=== PATIENT | male | born 1940 | race Caucasian/White ===

== ENCOUNTER 2017-10-12 14:29 | Inpatient (IN) | payer OTHER, BC ==
[2017-10-12 14:42] VITALS: BMI 28.2
[2017-10-12] MEDS ORDERED: SODIUM CHLORIDE 500 ML IV STA (14:52)
--- NOTE | 2017-10-12 15:03 | PDOC ---
History of Present Illness - General History Source: Patient - History of Present Illness Timing/Duration: 1 week Severity: mild Associated Symptoms: denies: chest pain, cough, diaphoresis, fever/chills, headaches, nausea/vomiting, shortness of breath, syncope, weakness <Kate RegaladoOdessa - Last Filed: 10/12/17 17:19> <Leny Bo - Last Filed: 10/17/17 10:02> - General Chief Complaint: Lightheaded Stated Complaint: DIZZINESS Time Seen by Provider: 10/12/17 14:47 Past History - Past Medical History COPD: No DVT: No Diabetes: Yes HTN: Yes Hypercholesterolemia: Yes - Immunization History Immunization Up to Date: Yes - Suicide/Smoking/Psychosocial Hx Smoking History: Never smoked Have you smoked in the past 12 months: No Information on smoking cessation initiated: No Hx Alcohol Use: No Drug/Substance Use Hx: No Substance Use Type: None <Sloughhouse,Helen - Last Filed: 10/12/17 17:19> <Leny Bo - Last Filed: 10/17/17 10:02> - Past Medical History Allergies/Adverse Reactions: Allergies Allergy/AdvReac Type Severity Reaction Status Date / Time No Known Allergies Allergy Verified 10/12/17 14:35 Home Medications: Ambulatory Orders Aspirin [ASA -] 81 mg PO DAILY 04/14/17 Glimepiride [Glimepiride -] 2 mg PO DAILY 04/14/17 Metoprolol Tartrate 25 mg PO DAILY 04/14/17 [place]-3/Dha/Epa/Fish Oil [Fish Oil 1,000 mg Softgel] 2,000 mg PO DAILY 04/14/17 Rosuvastatin Calcium [Crestor] 5 mg PO HS 04/14/17 Tamsulosin HCl 0.4 mg PO HS 04/14/17 Allopurinol [Zyloprim -] 100 mg PO DAILY 10/12/17 Dutasteride [Avodart] 0.5 mg PO HS 10/12/17 Indomethacin [Indocin -] 25 mg PO HS 10/12/17 Amlodipine Besylate [Norvasc -] 5 mg PO DAILY 30 Days #30 tablet 10/13/17 Valsartan [Diovan] 320 mg PO DAILY 30 Days #30 tablet 10/13/17 Review of Systems - Review of Systems Constitutional: No: Chills, Fever, Malaise, Weakness HEENTM: No: Blurred Vision Respiratory: No: Cough, Shortness of Breath Cardiac (ROS): Yes: Lightheadedness. No: Chest Pain, Palpitations, Syncope ABD/GI: No: Constipated, Diarrhea, Nausea, Vomiting, Abdominal cramping Neurological: No: Headache <Helen Regalado - Last Filed: 10/12/17 17:19> *Physical Exam - Vital Signs Last Vital Signs Temp Pulse Resp BP Pulse Ox 98.2 F 89 17 128/65 98 10/12/17 14:35 10/12/17 14:35 10/12/17 14:35 10/12/17 14:35 10/12/17 14:35 - Physical Exam General Appearance: Yes: Appropriately Dressed. No: Apparent Distress HEENT: positive: Normal Voice Neck: positive: Supple Respiratory/Chest: positive: Lungs Clear, Normal Breath Sounds. negative: Respiratory Distress Cardiovascular: positive: Regular Rate, S1, S2 Gastrointestinal/Abdominal: positive: Soft. negative: Tender, Pulsatile Mass Extremity: positive: Normal Inspection Integumentary: positive: Dry, Warm Neurologic: positive: aerospace engineer officer armament II-XII NML intact (no nystagmus, no drift, no ataxia) , Fully Oriented, Alert, Normal Mood/Affect, Motor Strength 5/5, Finger to Nose. negative: Facial Droop, Confused, Disoriented <Helen Regalado - Last Filed: 10/12/17 17:19> - Vital Signs Last Vital Signs Temp Pulse Resp BP Pulse Ox 98.6 F 67 20 120/56 97 10/14/17 19:28 10/14/17 19:28 10/14/17 19:28 10/14/17 19:28 10/14/17 19:28 <Leny Bo - Last Filed: 10/17/17 10:02> ED Treatment Course - LABORATORY CBC & Chemistry Diagram: 10/12/17 15:00 10/12/17 15:00 - RADIOLOGY Radiology Studies Ordered: Category Date Time Status CHEST X-RAY PORTABLE* [RAD] Stat Radiology 10/12/17 14:52 Ordered <Helen Rgealado - Last Filed: 10/12/17 17:19> - LABORATORY CBC & Chemistry Diagram: 10/13/17 06:34 10/14/17 11:35 - ADDITIONAL ORDERS Additional order review: 10/12/17 15:00 RBC 4.60 MCV 91.2 MCHC 34.6 RDW 13.0 MPV 10.2 Neutrophils % 77.3 Lymphocytes % 15.7 Monocytes % 6.4 Eosinophils % 0.4 Basophils % 0.2 - Medications Given in the ED: ED Medications Discontinued Medications Generic Name Dose Route Start Last Admin Trade Name Zachq PRN Reason Stop Dose Admin Acetaminophen 650 mg 10/13/17 12:37 10/13/17 12:57 Tylenol - PO 10/13/17 12:38 650 mg ONCE ONE Administration Acetaminophen 650 mg 10/13/17 20:30 10/13/17 21:21 Tylenol - PO 10/13/17 20:31 650 mg ONCE ONE Administration Acetaminophen 650 mg 10/14/17 10:16 10/14/17 21:01 Tylenol - PO 650 mg Q6H PRN Administration PAIN LEVEL 6-10 Allopurinol 100 mg 10/13/17 10:00 10/14/17 12:03 Zyloprim - PO 100 mg DAILY CASS Administration Amlodipine Besylate 10 mg 10/13/17 10:00 10/13/17 09:35 Norvasc - PO 10 mg DAILY CASS Administration Amlodipine Besylate 5 mg 10/13/17 10:00 10/14/17 12:03 Norvasc - PO 5 mg DAILY CASS Administration Aspirin 81 mg 10/12/17 22:00 10/14/17 21:02 Asa - PO 81 mg HS CASS Administration Dutasteride 0.5 mg 10/13/17 08:30 10/14/17 12:05 Avodart - PO 0.5 mg 0830 CASS Administration Heparin Sodium (Porcine) 5,000 unit 10/13/17 06:00 10/14/17 21:02 Heparin - SQ 5,000 unit TID CASS Administration Sodium Chloride 500 mls @ 500 mls/hr 10/12/17 14:52 10/12/17 15:22 Normal Saline - IV 10/12/17 15:51 500 mls/hr ASDIR STA Administration Sodium Chloride 500 mls @ 500 mls/hr 10/13/17 10:14 10/13/17 10:41 Normal Saline - IV 10/13/17 11:13 500 mls/hr ASDIR STA Administration Indomethacin 25 mg 10/12/17 22:00 10/12/17 23:33 Indocin - PO Not Given HS CASS Insulin Aspart 1 vial 10/12/17 22:00 10/14/17 21:00 Novolog Vial Sliding Scale - SQ Not Given HS CASS Protocol Insulin Aspart 1 vial 10/13/17 07:00 10/14/17 17:29 Novolog Vial Sliding Scale - SQ Not Given TIDAC [facility] Protocol Metoprolol Succinate 25 mg 10/13/17 10:00 10/13/17 10:04 Toprol Xl - PO Not Given DAILY CASS Metoprolol Tartrate 25 mg 10/13/17 10:00 10/13/17 09:35 Lopressor - PO 25 mg DAILY CASS Administration [id number] Ethyl Esters 2 gm 10/12/17 22:00 10/14/17 21:02 Lovaza - PO 2 gm BID CASS Administration Rosuvastatin Calcium 5 mg 10/12/17 22:00 10/14/17 21:02 Crestor - PO 5 mg HS CASS Administration Tamsulosin HCl 0.4 mg 10/13/17 08:30 10/14/17 12:05 Flomax - PO 0.4 mg 0830 CASS Administration Valsartan 320 mg 10/13/17 10:00 10/14/17 12:03 Diovan - PO 320 mg DAILY CASS Administration <Leny Bo - Last Filed: 10/17/17 10:02> Medical Decision Making - Medical Decision Making 10/12/17 14:59 77-year-old male history of hypertension, hyperlipidemia, here with dizziness. Patient states he was in his usual state of health until a week ago when he developed lightheadedness that is only present when he walks and lasts for several seconds before resolving. Denies sensation of the room spinning, headache, visual changes, focal weakness, nausea, vomiting, chest pain or shortness of breath. Has had decreased appetite since sxs began. States he is currently asymptomatic. No history of similar episode in the past. Patient states his last stress test a year ago was normal. Of note, patient had carotid ultrasound 04/22, which showed 20-49% calcified plaque to bilateral internal carotid arteries. See exam Dizziness R/o cardiac vs neuro vs metabolic, less likely infxn Stable and well florentino w/ intact neuro exam and clear chest/lungs -ekg -cxr -labs -orthostatics -CTH -dispo pending 10/12/17 16:33 EKG with T-wave inversions, no old to compare. Case discussed with Dr. Rios , patient's x ray technologist, who does not have access to patient's records at this time and does not remember what patient's last EKG demonstrated. Agrees w/ admission at this time. EKG has since been officially read by Dr. Sabillon who compared it to EKG in 2008, and documented that there is now increase of ME interval and an incomplete right bundle branch block has been replaced by complete right bundle-branch block. Troponin negative. Creatinine 1.7 with normal K. BUN 34. Patient states he has no known history of kidney disease. Case d/w Dr Mccarty and pt admitted to in tele 10/12/17 16:58 <Helen Regalado - Last Filed: 10/12/17 17:19> *DC/Admit/Observation/Transfer - Discharge Dispostion Admit: Yes <Helen Regalado - Last Filed: 10/12/17 17:19> - Attestations Physician Attestion: I reviewed the case with the mid-level practitioner and agree with the mid- level practitioner's assessment, diagnosis and disposition. <Leny Bo - Last Filed: 10/17/17 10:02> Diagnosis at time of Disposition: Dizziness ARF (acute renal failure) Qualifiers: Acute renal failure type: unspecified Qualified Code(s): N17.9 - Acute kidney failure, unspecified - Discharge Dispostion Disposition: TRANSFER ACUTE CARE/OTHER HOSP Condition at time of disposition: Good
[2017-10-12 15:21] LABS: BASO % 0.2 % (0-2.0); EOS % 0.4 % (0-4.5); HEMATOCRIT 41.9 % (35.4-49); HEMOGLOBIN 14.5 GM/dL (11.7-16.9); LYMPH % 15.7 % (8-40); MCH 31.5 pg (25.7-33.7); MCHC 34.6 g/dl (32.0-35.9); MEAN CELL VOLUME 91.2 fl (80-96); MEAN PLT VOLUME 10.2 fl (7.5-11.1); MONO % 6.4 % (3.8-10.2); NEUT % 77.3 % (42.8-82.8); PLATELET COUNT 176 K/MM3 (134-434); WHITE BLOOD COUNT 8.8 K/mm3 (4.0-10.0)
[2017-10-12 16:06] LABS: ALBUMIN 3.7 g/dl (3.4-5.0); ANION GAP 5 (8-16); BILIRUBIN,TOTAL 0.4 mg/dL (0.2-1.0); BLOOD UREA NITROGEN 34 mg/dL (7-18); CALCIUM 8.7 mg/dL (8.5-10.1); CHLORIDE 102 mmol/L (98-107); CO2 28 mmol/L (21-32); CREATININE 1.7 mg/dL (0.7-1.3); GLUCOSE,RANDOM 134 mg/dL (74-106); POTASSIUM 4.7 mmol/L (3.5-5.1); SGOT/AST 26 U/L (15-37); SGPT/ALT 25 U/L (12-78); SODIUM 135 mmol/L (136-145)
[2017-10-12 16:09] LABS: ALK PHOS 65 U/L (45-117); TOT PROT 7.3 g/dl (6.4-8.2)
--- NOTE | 2017-10-12 16:28 | EKG ---
Test Reason : Blood Pressure : / mmHG Vent. Rate : 072 BPM Atrial Rate : 072 BPM P-R Int : 268 ms QRS Dur : 134 ms QT Int : 394 ms P-R-T Axes : 030 -05 139 degrees QTc Int : 431 ms SINUS RHYTHM WITH 1ST DEGREE A-V BLOCK RIGHT BUNDLE BRANCH BLOCK LEFT VENTRICULAR HYPERTROPHY WITH REPOLARIZATION ABNORMALITY ABNORMAL ECG WHEN COMPARED WITH ECG OF 28-OCT-2008 17:31, [place] INTERVAL HAS INCREASED RIGHT BUNDLE BRANCH BLOCK HAS REPLACED INCOMPLETE RIGHT BUNDLE BRANCH BLOCK Confirmed by SALLY CHESTER, NOA ([id number]) on 10/12/2017 4:27:44 PM Referred By: Confirmed By:NOA ZAVALA MD
[2017-10-12 16:47] LABS: URINE APPEARANCE SLCLOUDY; URINE BILIRUBIN NEGATIVE (<2.0 mg/dL); URINE BLOOD NEGATIVE (NEGATIVE); URINE COLOR YELLOW; URINE GLUCOSE (UA) NEGATIVE (NEGATIVE); URINE KETONE NEGATIVE (NEGATIVE); URINE LEUK ESTERASE NEGATIVE (NEGATIVE); URINE NITRITE NEGATIVE (NEGATIVE); URINE PROTEIN NEGATIVE (NEGATIVE); URINE UROBILINOGEN NEGATIVE mg/dL (0.2-1.0)
--- NOTE | 2017-10-12 21:14 | HP ---
CHIEF COMPLAINT: lightheadedness PCP: Cory, Cardiology: Thang HISTORY OF PRESENT ILLNESS: This is a 77 year old male with a significant past medical history of HTN, HLD, DM who presented to the ED with a one week h/o lightheadedness whebn walking. He states the lightheadedness doesn't start right away when he stands but starts a little after he starts walking. He states that he exercises 3 times weekly on a treadmill and stationary bike and the lighthedeness doesn't occur then. He denies room spinning effect. He denies CP, palpitations, SOB. ER course was notable for: (1) CT head no acute changes (2) troponin neg (3) Recent Travel: pt denies PAST MEDICAL HISTORY: HTN, HLD, DM, gout, BPH PAST SURGICAL HISTORY: pt denies Social History: retired bar staff Smoking: pt denies Alcohol: occ Drugs: pt denies Family History: mother in her 80s, heart failure, h/o CVA in past father unk sister in her 50s, liver CA, h/o ETOH sister in her 50s, CA, unk type Allergies No Known Allergies Allergy (Verified 10/12/17 14:35) HOME MEDICATIONS: 3 Medication Instructions Recorded Amlodipine Besylate 10 mg PO HS 04/14/17 Aspirin [ASA -] 81 mg PO DAILY 04/14/17 Glimepiride [Glimepiride -] 2 mg PO DAILY 04/14/17 Metoprolol Tartrate 25 mg PO DAILY 04/14/17 Olmesartan/Hydrochlorothiazide 1 tab PO DAILY 04/14/17 [Benicar Hct 40-25 mg Tablet] [place]-3/Dha/Epa/Fish Oil [Fish Oil 2,000 mg PO DAILY 04/14/17 1,000 mg Softgel] Rosuvastatin Calcium [Crestor] 5 mg PO HS 04/14/17 Tamsulosin HCl 0.4 mg PO HS 04/14/17 Allopurinol [Zyloprim -] 100 mg PO QD 10/12/17 Dutasteride [Avodart] 0.5 mg PO HS 10/12/17 Indomethacin [Indocin -] 25 mg PO HS 10/12/17 REVIEW OF SYSTEMS CONSTITUTIONAL: Absent: fever, chills, diaphoresis, generalized weakness, malaise, loss of appetite, weight change HEENT: Absent: rhinorrhea, nasal congestion, throat pain, throat swelling, difficulty swallowing, mouth swelling, ear pain, eye pain, visual changes CARDIOVASCULAR: Present: lightheadedness Absent: chest pain, syncope, palpitations, irregular heart rate, peripheral edema RESPIRATORY: Absent: cough, shortness of breath, dyspnea with exertion, orthopnea, wheezing, stridor, hemoptysis GASTROINTESTINAL: Absent: abdominal pain, abdominal distension, nausea, vomiting, diarrhea, constipation, melena, hematochezia GENITOURINARY: Absent: dysuria, frequency, urgency, hesitancy, hematuria, flank pain, genital pain MUSCULOSKELETAL: Absent: myalgia, arthralgia, joint swelling, back pain, neck pain SKIN: Absent: rash, itching, pallor HEMATOLOGIC/IMMUNOLOGIC: Absent: easy bleeding, easy bruising, lymphadenopathy, frequent infections ENDOCRINE: Absent: unexplained weight gain, unexplained weight loss, heat intolerance, cold intolerance NEUROLOGIC: Absent: headache, focal weakness or paresthesias, dizziness, unsteady gait, seizure, mental status changes, bladder or bowel incontinence PSYCHIATRIC: Absent: anxiety, depression, suicidal or homicidal ideation, hallucinations. PHYSICAL EXAMINATION Vital Signs - 24 hr 3 10/12/17 10/12/17 10/12/17 14:35 15:16 15:21 Temperature 98.2 F Pulse Rate 89 Pulse Rate [ 80 Sitting] Pulse Rate [ 91 H Standing] Pulse Rate [ 91 H Supine] Respiratory 17 Rate Blood Pressure 128/65 Blood Pressure 141/74 [Sitting] Blood Pressure 123/61 [Standing] Blood Pressure 132/69 [Supine] O2 Sat by Pulse 98 98 Oximetry (%) GENERAL: Awake, alert, and fully oriented, in no acute distress. HEAD: Normal with no signs of trauma. EYES: Pupils equal, round and reactive to light, extraocular movements intact, sclera anicteric, conjunctiva clear. No lid lag. EARS, NOSE, THROAT: Ears normal, nares patent, oropharynx clear without exudates. Moist mucous membranes. NECK: Normal range of motion, supple without lymphadenopathy, JVD, or masses. LUNGS: Breath sounds equal, clear to auscultation bilaterally. No wheezes, and no crackles. No accessory muscle use. HEART: Regular rate and rhythm, normal S1 and S2 without murmur, rub or gallop. ABDOMEN: Soft, nontender, not distended, normoactive bowel sounds, no guarding, no rebound, no masses. No hepatomegaly or splenomegaly. MUSCULOSKELETAL: Normal range of motion at all joints. No bony deformities or tenderness. No CVA tenderness. UPPER EXTREMITIES: 2+ pulses, warm, well-perfused. No cyanosis. No clubbing. No peripheral edema. LOWER EXTREMITIES: 2+ pulses, warm, well-perfused. No calf tenderness. No peripheral edema. NEUROLOGICAL: Cranial nerves II-XII intact. Normal speech. Gait not observed. PSYCHIATRIC: Cooperative. Good eye contact. Appropriate mood and affect. SKIN: Warm, dry, normal turgor, no rashes or lesions noted, normal capillary refill. Laboratory Results - last 24 hr 3 10/12/17 10/12/17 10/12/17 15:00 15:00 15:14 WBC 8.8 RBC 4.60 Hgb 14.5 Hct 41.9 MCV 91.2 MCH 31.5 MCHC 34.6 RDW 13.0 Plt Count 176 MPV 10.2 Neutrophils % 77.3 Lymphocytes % 15.7 Monocytes % 6.4 Eosinophils % 0.4 Basophils % 0.2 Sodium 135 L Potassium 4.7 Chloride 102 Carbon Dioxide 28 Anion Gap 5 L BUN 34 H Creatinine 1.7 H Creat Clearance w eGFR 39.07 Random Glucose 134 H Calcium 8.7 Total Bilirubin 0.4 AST 26 ALT 25 Alkaline Phosphatase 65 Creatine Kinase 351 H Creatine Kinase Index 1.8 CK-MB (CK-2) 6.566 H Troponin I 0.03 B-Natriuretic Peptide 253.76 Total Protein 7.3 Albumin 3.7 Urine Color Yellow Urine Appearance Slcloudy Urine pH 5.0 Ur Specific [place] 1.013 Urine Protein Negative Urine Glucose (UA) Negative Urine Ketones Negative Urine Blood Negative Urine Nitrite Negative Urine Bilirubin Negative Urine Urobilinogen Negative Ur Leukocyte Esterase Negative ECG vent rate 72, QTC 431 RIGHT BUNDLE BRANCH BLOCK LEFT VENTRICULAR HYPERTROPHY WITH REPOLARIZATION ABNORMALITY ABNORMAL ECG WHEN COMPARED WITH ECG OF 28-OCT-2008 17:31, [place] INTERVAL HAS INCREASED RIGHT BUNDLE BRANCH BLOCK HAS REPLACED INCOMPLETE RIGHT BUNDLE BRANCH BLOCK Radiology Reports Chest-portable- final read pending, no obvious infiltrates or effusions CT head Impression: No acute intracranial hemorrhage, mass effects or hydrocephalus. Reported By: Norman Lyman DO 10/12/17 9902 ASSESSMENT/PLAN: 68yM with PMH HTN, HLD, DM, BPH, gout presented to the ED with a 1 week history of lightheadedness. lightheadedness - monitor on tele, r/o arrhythmia - trend trop, r/o ischemic event, but doubtful - orthostatic vital signs - consider neuro consult if cardio workup negative New RBBB - cardiology consult elevated BUN/cr - unknown baseline, PCP to f/u in am - hold HCTZ and indomethacin for now HTN/HLD - cont home meds: norvasc, metoprolol, crestor, fish oil. Benicar HCT changed to formulary equivalent BPH - cont home avodart and flomax DM - hold glimepirid while inpt - BGM AC/HS with novolog ss gout - cont home allopurinol, indomethacin on hold due to renal function DVT PPX - heparin 5000u TID FEN - tolerating po - bmp in am - low sodium diabetic diet as tolerated Dispo: Pt currently requires further inpatient monitoring for management of his emergent condition. Hospitalist Screening - Colonoscopy Questionnaire Colonoscopy Questionnaire: Colonoscopy Questionnaire
[2017-10-12] MEDS ORDERED: INDOMETHACIN 25 MG CAPSULE PO SCH (22:00)
[2017-10-12] MEDS ORDERED: ASPIRIN 325 MG TABLET ONE (23:08)
[2017-10-12] MEDS: ROSUVASTATIN CA 5 MG TABLET (FP) PO SCH (23:20)
[2017-10-12] MEDS: ASPIRIN 81 MG CHEWABLE TABLETS PO SCH (23:20)
[2017-10-12] MEDS: OMEGA-3 ACID ETHYL ESTERS (FATTY-ACIDS) 1 GM CAPSULE (FP) PO SCH (23:20)
[2017-10-12] MEDS ORDERED: INSULIN (NOVOLOG) ASPART 100 UNITS/ML 10ML VIAL ONE (23:25)
[2017-10-12] MEDS: INSULIN SLIDING SCALE (NOVOLOG) 1 VIAL SQ SCH (23:28)
[2017-10-13] MEDS: INSULIN SLIDING SCALE (NOVOLOG) 1 VIAL SQ SCH ×4 (06:10→21:29)
[2017-10-13] MEDS: HEPARIN NA (PORCINE) 5,000 UNITS/ML 1ML VIAL SQ SCH ×3 (06:25→21:22)
[2017-10-13] MEDS ORDERED: HEPARIN NA (PORCINE) 5,000 UNITS/ML 1ML VIAL ONE (06:27)
[2017-10-13 06:44] LABS: BASO % 0.5 % (0-2.0); EOS % 1.2 % (0-4.5); HEMATOCRIT 40.8 % (35.4-49); HEMOGLOBIN 14.1 GM/dL (11.7-16.9); LYMPH % 19.7 % (8-40); MCH 31.6 pg (25.7-33.7); MCHC 34.6 g/dl (32.0-35.9); MEAN CELL VOLUME 91.5 fl (80-96); MONO % 8.1 % (3.8-10.2); NEUT % 70.5 % (42.8-82.8); PLATELET COUNT 181 K/MM3 (134-434); RBC 4.46 M/mm3 (4.00-5.60); RDW 13.2 % (11.9-15.9); WHITE BLOOD COUNT 8.8 K/mm3 (4.0-10.0)
[2017-10-13 07:10] LABS: ANION GAP 6 (8-16); BLOOD UREA NITROGEN 29 mg/dL (7-18); CALCIUM 8.8 mg/dL (8.5-10.1); CHLORIDE 104 mmol/L (98-107); CO2 28 mmol/L (21-32); CREATININE 1.2 mg/dL (0.7-1.3); GLUCOSE,RANDOM 87 mg/dL (74-106); PHOSPHOROUS 3.4 mg/dL (2.5-4.9); POTASSIUM 4.8 mmol/L (3.5-5.1); SODIUM 138 mmol/L (136-145)
--- NOTE | 2017-10-13 09:32 | CON.CARD ---
Consult Consult Specialty:: cardio - History of Present Illness Chief Complaint: dizzy History of Present Illness: 77 M here with one week h/o lightheadedness when walking. no syncope, at times presyncopal. exercises 3 times weekly on a treadmill and stationary bike and denies lightheadedness at that time. no cp or sob, incl with exercise as well. denies room spinning sensation. no palpitations admits to chronically poor po fluids intake. PMH: HTN HPL known RBBB on ekg - Past Medical History Cardio/Vascular: Yes: HTN, Hyperlipdemia Renal/: Yes: BPH Endocrine: Yes: Diabetes Mellitus - Past Surgical History Past Surgical History: Yes: None - Alcohol/Substance Use Hx Alcohol Use: No - Smoking History Smoking history: Never smoked Have you smoked in the past 12 months: No Home Medications - Allergies Allergies/Adverse Reactions: Allergies Allergy/AdvReac Type Severity Reaction Status Date / Time No Known Allergies Allergy Verified 10/12/17 14:35 - Home Medications Home Medications: Ambulatory Orders Aspirin [ASA -] 81 mg PO DAILY 04/14/17 Glimepiride [Glimepiride -] 2 mg PO DAILY 04/14/17 Metoprolol Tartrate 25 mg PO DAILY 04/14/17 [place]-3/Dha/Epa/Fish Oil [Fish Oil 1,000 mg Softgel] 2,000 mg PO DAILY 04/14/17 Rosuvastatin Calcium [Crestor] 5 mg PO HS 04/14/17 Tamsulosin HCl 0.4 mg PO HS 04/14/17 Allopurinol [Zyloprim -] 100 mg PO DAILY 10/12/17 Dutasteride [Avodart] 0.5 mg PO HS 10/12/17 Indomethacin [Indocin -] 25 mg PO HS 10/12/17 Amlodipine Besylate [Norvasc -] 5 mg PO DAILY 30 Days #30 tablet 10/13/17 Valsartan [Diovan] 320 mg PO DAILY 30 Days #30 tablet 10/13/17 Review of Systems - Review of Systems Constitutional: denies: Chills, Fever Eyes: denies: Eye Pain HENT: denies: Nasal Congestion Neck: denies: Stiffness Cardiovascular: denies: Palpitations Respiratory: denies: Orthopnea, PND Gastrointestinal: denies: Diarrhea, Rectal Bleeding Genitourinary: denies: Burning, Hematuria Musculoskeletal: denies: Muscle Pain Integumentary: denies: Rash Neurological: reports: Dizziness. denies: Numbness, Seizure, Syncope Endocrine: denies: Excessive Sweating Hematology/Lymphatic: denies: Excessive Bleeding Vital Signs: Vital Signs Temperature 98.6 F 10/13/17 01:15 Pulse Rate 62 10/13/17 06:31 Respiratory Rate 18 10/13/17 06:31 Blood Pressure 122/65 10/13/17 06:31 O2 Sat by Pulse Oximetry (%) 95 10/13/17 06:31 Constitutional: Yes: Well Nourished, No Distress Eyes: No: Sclera Icterus HENT: No: Nasal Congestion Neck: No: Decreased ROM Respiratory: Yes: CTA Bilaterally. No: Accessory Muscle Use, Rales, Wheezes Gastrointestinal: Yes: Normal Bowel Sounds. No: Distention, Hepatomegaly, Palpable Mass, Tenderness Cardiovascular: Yes: Regular Rate and Rhythm JVD: No Carotid Bruit: No PMI: Non-Displaced Heart Sounds: Yes: S1, S2. No: Gallop Murmur: No: Systolic Murmur, Diastolic Murmur Musculoskeletal: Yes: Other (No kyphosis) Extremities: No: Cold, Cyanosis Edema: No Peripheral Pulses: 2+ Left Carotid, 2+ Right Carotid, 2+ Left Doralis Pedis, 2+ Right Dorsalis Pedis Integumentary: No: Jaundice Neurological: Yes: Alert, Oriented (x3) Psychiatric: No: Agitated - Other Data Labs, Other Data: CBC, BMP 10/13/17 06:34 10/13/17 06:34 Troponin, BNP 10/12/17 10/12/17 10/12/17 15:00 15:14 21:15 Troponin I 0.03 0.03 B-Natriuretic Peptide 253.76 10/13/17 06:34 Troponin I 0.04 D B-Natriuretic Peptide Troponin, BNP 10/12/17 10/12/17 10/12/17 15:00 15:14 21:15 Troponin I 0.03 0.03 B-Natriuretic Peptide 253.76 10/13/17 06:34 Troponin I 0.04 D B-Natriuretic Peptide Laboratory Tests 10/12/17 10/12/17 10/12/17 15:00 15:14 21:15 WBC Hgb Plt Count Sodium Potassium Carbon Dioxide BUN 34 H Creatinine 1.7 H Troponin I 0.03 0.03 B-Natriuretic Peptide 253.76 10/13/17 10/13/17 10/13/17 06:34 06:34 06:34 WBC 8.8 Hgb 14.1 Plt Count 181 Sodium 138 Potassium 4.8 Carbon Dioxide 28 BUN 29 H Creatinine 1.2 D Troponin I 0.04 D B-Natriuretic Peptide Assessment/Plan Echo 09/20: mild LVH. nl LV/RV. valves WNL. aorta root 3.9 cm. Stress Echo 09/20: no STs. no echo ischemia. Carotids 04/22 (walker): 20-49% bilat ICA. nonobstr subclavian athero with antegrade flow in vertebrals ECG 10/12: NSR, 1st degr AVB. RBBB. no path q's. diffuse TWIs anter leads--NO CHANGE VS 07/24 AND 2016 OFFICE ECG'S positional lightheadedness: -supine BP 129 drops to 103 standing today (lesser drop of 9 mmHg recorded on DOA) -creat up from baseline range -suspect orthostatic hypotension due to intravasc vol depletion--hold thiazide, as below -sx's not concerning for carotid stenosis, and recent dopplers 6 mo ago with mild disease (non-obstructive). no further w/u of carotids indicated. HTN: -bp controlled at home on benicarHCT 40/25, toprol 25, amlodipine 10 -here with orthostatic hypotension sx's, creat up vs baseline -held thiazide here, remains very orthostatic this am -hold thiazide, note he took yesterday's am dose at home (can try HCTZ 6.25 dose if bp rises in future) -decr amlodipine 10 to 5mg qd -observe sx's. if no more dizzy sx's with ambulation this afternoon, and bp controlled, can d/c home with outpt f/u of orthostatic (and resting) BPs at dr eddie JONES on CKD: -baseline bun/creat 30s/1.4 -renal fxn worse here, suspect vol depletion. -hold diuretic, encourage po, observe creat trend HPL: -on rosuva 5 with fish oil omega-3 FAs at home -cont same regimen abnormal ECG: -no change vs baseline -trop neg x3 -no myocardial ischemia sx's -prior w/u (echo, stress echo) unremarkable--no further w/u indicated
[2017-10-13] MEDS: OMEGA-3 ACID ETHYL ESTERS (FATTY-ACIDS) 1 GM CAPSULE (FP) PO SCH ×2 (09:35→21:22)
[2017-10-13] MEDS: VALSARTAN 160 MG TABLET (UD) PO SCH (09:35)
[2017-10-13] MEDS: TAMSULOSIN HCL 0.4 MG CAP.ER.24H (FP) PO SCH (09:35)
[2017-10-13] MEDS: DUTASTERIDE 0.5 MG CAP (FP) PO SCH (09:35)
[2017-10-13] MEDS: ALLOPURINOL 100 MG TABLET (FP) PO SCH (09:36)
[2017-10-13] MEDS ORDERED: PATIENT'S OWN MEDICATION (NON-FORMULARY) (Olmesartan/Hydrochlorothiazide [Benicar Hct 40-2 PO SCH (10:00)
[2017-10-13] MEDS ORDERED: metoPROLOL SUCCINATE 25 MG TAB.SR.24H (FP) PO SCH (10:00)
[2017-10-13] MEDS ORDERED: ASPIRIN 81 MG CHEWABLE TABLETS PO SCH (10:00)
[2017-10-13] MEDS ORDERED: HYDROCHLOROTHIAZIDE 25 MG TABLET (FP) PO SCH (10:00)
[2017-10-13] MEDS ORDERED: METOPROLOL TARTRATE 25 MG TABLET (FP) PO SCH (10:00)
[2017-10-13] MEDS ORDERED: amLODIPine BESYLATE 10 MG TABLET (FP) PO SCH (10:00)
[2017-10-13] MEDS: amLODIPine BESYLATE 5 MG TABLET (FP) PO SCH (10:04)
[2017-10-13] MEDS ORDERED: SODIUM CHLORIDE 500 ML IV STA (10:14)
--- NOTE | 2017-10-13 10:28 | DS ---
Physical Examination Vital Signs: Vital Signs Temperature 98.6 F 10/13/17 01:15 Pulse Rate 62 10/13/17 06:31 Respiratory Rate 18 10/13/17 06:31 Blood Pressure 122/65 10/13/17 06:31 O2 Sat by Pulse Oximetry (%) 95 10/13/17 06:31 Constitutional: Yes: Well Nourished, No Distress Cardiovascular: Yes: WNL, Regular Rate and Rhythm Labs: CBC, BMP 10/13/17 06:34 10/13/17 06:34 Discharge Summary Reason For Visit: DIZZINESS/ACUTE RENAL FAILURE Current Active Problems ARF (acute renal failure) (Acute) Dizziness (Acute) Condition: Good - Instructions Referrals: Adrian Ray MD [Primary Care Provider] - 1 Week Dominic Desir MD [Staff Physician] - 1 Week (Orthostatic hypotension f/u ) Disposition: HOME - Home Medications Comprehensive Discharge Medication List: Ambulatory Orders Aspirin [ASA -] 81 mg PO DAILY 04/14/17 Glimepiride [Glimepiride -] 2 mg PO DAILY 04/14/17 Metoprolol Tartrate 25 mg PO DAILY 04/14/17 [place]-3/Dha/Epa/Fish Oil [Fish Oil 1,000 mg Softgel] 2,000 mg PO DAILY 04/14/17 Rosuvastatin Calcium [Crestor] 5 mg PO HS 04/14/17 Tamsulosin HCl 0.4 mg PO HS 04/14/17 Allopurinol [Zyloprim -] 100 mg PO DAILY 10/12/17 Dutasteride [Avodart] 0.5 mg PO HS 10/12/17 Indomethacin [Indocin -] 25 mg PO HS 10/12/17 Amlodipine Besylate [Norvasc -] 5 mg PO DAILY 30 Days #30 tablet 10/13/17 Valsartan [Diovan] 320 mg PO DAILY 30 Days #30 tablet 10/13/17
[2017-10-13] MEDS ORDERED: ACETAMINOPHEN 325 MG TABLET (FP) PO ONE ×2 (12:37→20:30)
[2017-10-13] MEDS ORDERED: ACETAMINOPHEN 325 MG TABLET (FP) ONE (12:55)
--- NOTE | 2017-10-13 14:54 | PN ---
Progress Note, Physician Chief Complaint: Pt lying in stretcher in no acute distress. Denies any chest discomfort, sob, n/ v/d or weakness. Reports no dizziness no lightheadedness. - Current Medication List Current Medications: Active Medications Allopurinol (Zyloprim -) 100 mg PO DAILY [facility] Last Admin: 10/13/17 09:36 Dose: 100 mg Amlodipine Besylate (Norvasc -) 5 mg PO DAILY [facility] Last Admin: 10/13/17 10:04 Dose: Not Given Aspirin (Asa -) 81 mg PO [facility] Last Admin: 10/12/17 23:20 Dose: 81 mg Dutasteride (Avodart -) 0.5 mg PO 0830 [facility] Last Admin: 10/13/17 09:35 Dose: 0.5 mg Heparin Sodium (Porcine) (Heparin -) 5,000 unit SQ TID [facility] Last Admin: 10/13/17 06:25 Dose: 5,000 unit Insulin Aspart (Novolog Vial Sliding Scale -) 1 vial SQ [facility] PRN Reason: Protocol Last Admin: 10/12/17 23:28 Dose: 2 units Insulin Aspart (Novolog Vial Sliding Scale -) 1 vial SQ TIDAC [facility] PRN Reason: Protocol Last Admin: 10/13/17 12:33 Dose: Not Given Metoprolol Succinate (Toprol Xl -) 25 mg PO DAILY [facility] Last Admin: 10/13/17 10:04 Dose: Not Given Szpbu-[id number] Ethyl Esters (Lovaza -) 2 gm PO BID [facility] Last Admin: 10/13/17 09:35 Dose: 2 gm Rosuvastatin Calcium (Crestor -) 5 mg PO [facility] Last Admin: 10/12/17 23:20 Dose: 5 mg Tamsulosin HCl (Flomax -) 0.4 mg PO 0830 [facility] Last Admin: 10/13/17 09:35 Dose: 0.4 mg Valsartan (Diovan -) 320 mg PO DAILY [facility] Last Admin: 10/13/17 09:35 Dose: 320 mg - Objective Vital Signs: Vital Signs Temperature 98.1 F 10/13/17 09:00 Pulse Rate 57 L 10/13/17 11:56 Respiratory Rate 18 10/13/17 11:56 Blood Pressure 143/72 10/13/17 11:56 O2 Sat by Pulse Oximetry (%) 98 04/09/18 11:56 Constitutional: Yes: Well Nourished, No Distress Cardiovascular: Yes: WNL, Regular Rate and Rhythm. No: Tachycardia, Gallop, Murmur Respiratory: Yes: WNL, Regular, CTA Bilaterally. No: Rhonchi, SOB, Tachypnea Gastrointestinal: Yes: WNL, Normal Bowel Sounds, Soft. No: Distention, Tenderness Genitourinary: Yes: WNL Edema: No Neurological: Yes: WNL, Alert, Oriented Psychiatric: Yes: WNL, Alert, Oriented Labs: CBC, BMP 10/13/17 06:34 10/13/17 06:34 - ....Imaging EKG: Report Reviewed Problem List - Problems (1) Orthostatic dizziness Assessment/Plan: denies any current symptoms orthostatic + in the am ekg first deg HB, RBB, unchanged from outpt records per cardiology pre-syncope episode today with bradycardia to 30s which resolved hctz held amlodipine decreased to 5mg valsartan tele cardiology following Code(s): R42 - DIZZINESS AND GIDDINESS (2) HTN (hypertension) Assessment/Plan: controlled as above Code(s): I10 - ESSENTIAL (PRIMARY) HYPERTENSION Qualifiers: Hypertension type: essential hypertension Qualified Code(s): I10 - Essential (primary) hypertension (3) Hyperlipidemia Assessment/Plan: stable continue statin Code(s): E78.5 - HYPERLIPIDEMIA, UNSPECIFIED (4) BPH (benign prostatic hyperplasia) Assessment/Plan: stable continue flomax Code(s): N40.0 - BENIGN PROSTATIC HYPERPLASIA WITHOUT LOWER URINRY TRACT SYMP Qualifiers: Lower urinary tract symptom presence: symptoms absent Qualified Code(s): N40.0 - Benign prostatic hyperplasia without lower urinary tract symptoms (5) Diabetes Assessment/Plan: controlled on glimipiride outpt insulin sliding scale here bgm will monitor Code(s): E11.9 - TYPE 2 DIABETES MELLITUS WITHOUT COMPLICATIONS Qualifiers: Diabetes mellitus type: type 2
[2017-10-13] MEDS ORDERED: INSULIN (NOVOLOG) ASPART 100 UNITS/ML 10ML VIAL ONE (21:15)
[2017-10-13] MEDS: ASPIRIN 81 MG CHEWABLE TABLETS PO SCH (21:22)
[2017-10-13] MEDS: ROSUVASTATIN CA 5 MG TABLET (FP) PO SCH (21:54)
[2017-10-13] MEDS ORDERED: ATROPINE SULFATE 1 MG/10 ML DISP.SYRIN IVPUSH PRN (23:12)
--- NOTE | 2017-10-13 23:28 | HOSP ---
Subjective - Review of Symptoms Events since last encounter: called by RN toevaluate pt with HR 27. Subjective: pt reports episode dizziness during episode. Upon exam pt reports feeling better , back to baseline. Physical Examination Vital Signs: Vital Signs Temperature 98.2 F 10/13/17 20:30 Pulse Rate 74 10/13/17 20:30 Respiratory Rate 18 10/13/17 20:30 Blood Pressure 138/59 10/13/17 20:30 O2 Sat by Pulse Oximetry (%) 99 10/13/17 20:25 Constitutional: Yes: No Distress, Calm Cardiovascular: Yes: Regular Rate and Rhythm, S1, S2. No: Murmur Respiratory: Yes: CTA Bilaterally Gastrointestinal: Yes: Normal Bowel Sounds, Soft. No: Tenderness Labs: CBC, BMP 10/13/17 06:34 10/13/17 06:34 Hospitalist Encounter Assessment: symptomatic bradycardia, 3rd degree heart block - monitor review revealed 3rd degree heart block, pt spontaneously recovered and returned to baseline NSR with 1st degree block - dc metoprolol - external pacer pads on pt, pacer at bedside - atropine at bedside, may not work as pt is on metoprolol - can start low dose dopamine if bradycardia returns. - transfer to ICU when bed available
--- NOTE | 2017-10-13 23:48 | EKG ---
Test Reason : Blood Pressure : / mmHG Vent. Rate : 073 BPM Atrial Rate : 073 BPM P-R Int : 298 ms QRS Dur : 134 ms QT Int : 402 ms P-R-T Axes : 031 -07 096 degrees QTc Int : 442 ms SINUS RHYTHM WITH 1ST DEGREE A-V BLOCK RIGHT BUNDLE BRANCH BLOCK LEFT VENTRICULAR HYPERTROPHY WITH REPOLARIZATION ABNORMALITY ABNORMAL ECG WHEN COMPARED WITH ECG OF 12-OCT-2017 15:32, NO SIGNIFICANT CHANGE WAS FOUND Confirmed by NORM CHESTER, ASHLIE ([id number]) on 10/13/2017 11:48:07 PM Referred By: Confirmed By:ASHLIE ZHENG MD
[2017-10-14] MEDS: HEPARIN NA (PORCINE) 5,000 UNITS/ML 1ML VIAL SQ SCH ×3 (05:32→21:02)
[2017-10-14] MEDS: INSULIN SLIDING SCALE (NOVOLOG) 1 VIAL SQ SCH ×4 (06:04→21:00)
[2017-10-14] MEDS ORDERED: MUPIROCIN 2% TOPICAL OINTMENT FOR DECOLONIZATION NS SCH (10:00)
[2017-10-14] MEDS ORDERED: ACETAMINOPHEN 325 MG TABLET (FP) PO PRN (10:16)
--- NOTE | 2017-10-14 10:55 | PN ---
Progress Note (short form) - Note Progress Note: CC: syncope S: Yesterday norvasc was decreased to 5 mg/day and hctz was dc'd. Was not discharged yesterday because upon standing up to leave patient had syncopal episode. HR at the time was 55 bpm. ? may have become more bradycardic later, but not documented in vitals or nursing notes. Patient with self-limited episode of bradycardia overnight. Was sleeping at the time. When he was woken up he is not sure whether he had sx's of dizziness/ lightheaded or whether he was simply groggy from having just been woken up. Patient remained hemodynamically stable. Last dose of metoprolol was yesterday. Metoprolol was discontinued. EKG was without ischemic changes. pacer pads placed. Request for ICU bed was placed. Today he feels well. no cp, palps, dizziness or sob. Current Medications Acetaminophen (Tylenol -) 650 mg PO Q6H PRN PRN Reason: PAIN LEVEL 6-10 Allopurinol (Zyloprim -) 100 mg PO DAILY [facility] Last Admin: 10/13/17 09:36 Dose: 100 mg Amlodipine Besylate (Norvasc -) 5 mg PO DAILY [facility] Last Admin: 10/13/17 10:04 Dose: Not Given Aspirin (Asa -) 81 mg PO [facility] Last Admin: 10/13/17 21:22 Dose: 81 mg Dutasteride (Avodart -) 0.5 mg PO 0830 [facility] Last Admin: 10/13/17 09:35 Dose: 0.5 mg Heparin Sodium (Porcine) (Heparin -) 5,000 unit SQ TID [facility] Last Admin: 10/14/17 05:32 Dose: 5,000 unit Insulin Aspart (Novolog Vial Sliding Scale -) 1 vial SQ HS [facility] PRN Reason: Protocol Last Admin: 10/13/17 21:29 Dose: Not Given Insulin Aspart (Novolog Vial Sliding Scale -) 1 vial SQ TIDAC [facility] PRN Reason: Protocol Last Admin: 10/14/17 06:04 Dose: Not Given [id number] Ethyl Esters (Lovaza -) 2 gm PO BID [facility] Last Admin: 10/13/17 21:22 Dose: 2 gm Rosuvastatin Calcium (Crestor -) 5 mg PO [facility] Last Admin: 10/13/17 21:54 Dose: 5 mg Tamsulosin HCl (Flomax -) 0.4 mg PO 829 [facility] Last Admin: 10/13/17 09:35 Dose: 0.4 mg Valsartan (Diovan -) 320 mg PO DAILY [facility] Last Admin: 10/13/17 09:35 Dose: 320 mg Vital Signs - 24 hr 10/13/17 10/13/17 10/13/17 11:56 13:05 15:00 Temperature 98.3 F 98.4 F Pulse Rate 57 L 63 61 Respiratory 18 18 18 Rate Blood Pressure 143/72 139/72 136/71 O2 Sat by Pulse 98 Oximetry (%) 10/13/17 10/13/17 10/13/17 17:00 20:25 20:30 Temperature 98.3 F 98.2 F Pulse Rate 59 L 74 Respiratory 18 18 18 Rate Blood Pressure 134/71 138/59 O2 Sat by Pulse 99 Oximetry (%) 10/13/17 10/14/17 10/14/17 22:30 01:13 05:35 Temperature 97.4 F L 97.9 F Pulse Rate 61 62 60 Respiratory 18 18 18 Rate Blood Pressure 136/63 135/58 128/59 O2 Sat by Pulse Oximetry (%) 10/14/17 08:00 Temperature 97.7 F Pulse Rate 63 Respiratory 18 Rate Blood Pressure 136/69 O2 Sat by Pulse Oximetry (%) Intake & Output 10/12/17 10/13/17 10/14/17 10/15/17 07:59 07:59 07:59 07:59 Intake Total 120 260 Balance 120 260 Weight 214 lb 214 lb Constitutional: Yes: Well Nourished, No Distress Eyes: No: Sclera Icterus HENT: No: Nasal Congestion Neck: No: Decreased ROM Respiratory: Yes: CTA Bilaterally. No: Accessory Muscle Use, Rales, Wheezes Gastrointestinal: Yes: Normal Bowel Sounds. No: Distention, Hepatomegaly, Palpable Mass, Tenderness Cardiovascular: Yes: Regular Rate and Rhythm JVD: No Carotid Bruit: No PMI: Non-Displaced Heart Sounds: Yes: S1, S2. No: Gallop Murmur: No: Systolic Murmur, Diastolic Murmur Musculoskeletal: Yes: Other (No kyphosis) Extremities: No: Cold, Cyanosis Edema: No Peripheral Pulses: 2+ Left Carotid, 2+ Right Carotid, 2+ Left Doralis Pedis, 2+ Right Dorsalis Pedis Integumentary: No: Jaundice Neurological: Yes: Alert, Oriented (x3) Psychiatric: No: Agitated - Other Data Labs, Other Data: no CBC, BMP today 10/13/17 06:34 10/13/17 06:34 Assessment/Plan Echo 09/20: mild LVH. nl LV/RV. valves WNL. aorta root 3.9 cm. Stress Echo 09/20: no STs. no echo ischemia. Carotids 04/22 (walker): 20-49% bilat ICA. nonobstr subclavian athero with antegrade flow in vertebrals ECG 10/12: NSR, 1st degr AVB. RBBB. no path q's. diffuse TWIs anter leads--NO CHANGE VS 07/24 AND 2016 OFFICE ECG'S 77 M with h/o htn, hl, rbbb, bph, dm who p/w one week h/o lightheadedness when walking. hospital course complicated by episode of presyncope/syncope in ER with associated bradycardia and second episode of bradycardia overnight 10/13. . positional lightheadedness: -supine BP 129 drops to 103 standing 10/13 (lesser drop of 9 mmHg recorded on DOA) -creat up from baseline range. suspect orthostatic hypotension due to intravasc vol depletion--holding thiazide, decreased norvasc dose. -sx's not concerning for carotid stenosis, and recent dopplers 6 mo ago with mild disease (non-obstructive). no further w/u of carotids indicated. - orthostatic vitals ordered for tomorrow. patient states he was exercising regular on treadmill up until this past week and denied exertional lightheadedness. bradycardia/heart block. - 10/14: overnight HR dipped briefly into the 20's. concern for high grade block as mentioned above. Reviewed telemetry. patient with av delay and 3:1 conduction. Was able to capture 2 sequential conducted beats during this episode and pr-prolongation was demonstrated c/w Wenckebach but still concerning for high grade block. Subsequent telemetry shows p waves marching out with intermittent ventricular couplets. Pr interval shortens so not clear that they are conducted complexes. May be a ventricular escape followed by a conducted qrs complex. - No recurrence off of metoprolol today, but high grade block and underlying conduction abnormalities would benefit from EP study, +/- PPM. [place] [facility] [place] - will order repeat labs today including cardiac enzymes and tsh. echo pending. - con't to monitor on tele, ok to keep on tele floor if no recurrence. HTN: -bp controlled at home on benicarHCT 40/25, toprol 25, amlodipine 10 -here with orthostatic hypotension sx's, creat up vs baseline -held thiazide here, remains very orthostatic this am -hold thiazide, note he took yesterday's am dose at home (can try HCTZ 6.25 dose if bp rises in future) -decr amlodipine 10 to 5mg qd - holding toprol. KAREN on CKD: -baseline bun/creat 30s/1.4 -renal fxn worse here, suspect vol depletion. -hold diuretic, encourage po, observe creat trend HPL: -on rosuva 5 with fish oil omega-3 FAs at home -cont same regimen abnormal ECG: -no change vs baseline -trop neg x3 -no myocardial ischemia sx's -prior w/u (echo, stress echo) unremarkable--no further w/u indicated
--- NOTE | 2017-10-14 11:18 | PN ---
Progress Note, Physician Chief Complaint: Pt lying in bed in no acute distress. Denies any chest discomfort, sob, n/v/d or weakness. Reports no dizziness no lightheadedness. - Current Medication List Current Medications: Active Medications Acetaminophen (Tylenol -) 650 mg PO Q6H PRN PRN Reason: PAIN LEVEL 6-10 Allopurinol (Zyloprim -) 100 mg PO DAILY [facility] Last Admin: 10/13/17 09:36 Dose: 100 mg Amlodipine Besylate (Norvasc -) 5 mg PO DAILY [facility] Last Admin: 10/13/17 10:04 Dose: Not Given Aspirin (Asa -) 81 mg PO [facility] Last Admin: 10/13/17 21:22 Dose: 81 mg Dutasteride (Avodart -) 0.5 mg PO 0830 [facility] Last Admin: 10/13/17 09:35 Dose: 0.5 mg Heparin Sodium (Porcine) (Heparin -) 5,000 unit SQ TID [facility] Last Admin: 10/14/17 05:32 Dose: 5,000 unit Insulin Aspart (Novolog Vial Sliding Scale -) 1 vial SQ [facility] PRN Reason: Protocol Last Admin: 10/13/17 21:29 Dose: Not Given Insulin Aspart (Novolog Vial Sliding Scale -) 1 vial SQ TIDAC [facility] PRN Reason: Protocol Last Admin: 10/14/17 06:04 Dose: Not Given Nkwul-2-Sigi Ethyl Esters (Lovaza -) 2 gm PO BID [facility] Last Admin: 10/13/17 21:22 Dose: 2 gm Rosuvastatin Calcium (Crestor -) 5 mg PO [facility] Last Admin: 10/13/17 21:54 Dose: 5 mg Tamsulosin HCl (Flomax -) 0.4 mg PO 0830 [facility] Last Admin: 10/13/17 09:35 Dose: 0.4 mg Valsartan (Diovan -) 320 mg PO DAILY [facility] Last Admin: 10/13/17 09:35 Dose: 320 mg - Objective Vital Signs: Vital Signs Temperature 97.7 F 10/14/17 08:00 Pulse Rate 63 10/14/17 08:00 Respiratory Rate 18 10/14/17 08:00 Blood Pressure 136/69 10/14/17 08:00 O2 Sat by Pulse Oximetry (%) 99 10/13/17 20:25 Constitutional: Yes: Well Nourished, No Distress Cardiovascular: Yes: WNL, Regular Rate and Rhythm. No: Bruit, Gallop, Murmur Respiratory: Yes: WNL, Regular, CTA Bilaterally. No: Tachypnea, Wheezes Gastrointestinal: Yes: WNL, Normal Bowel Sounds, Soft. No: Distention, Tenderness Genitourinary: Yes: WNL Edema: No Neurological: Yes: WNL, Alert, Oriented Psychiatric: Yes: WNL, Alert, Oriented Labs: CBC, BMP 10/13/17 06:34 10/13/17 06:34 - ....Imaging EKG: Report Reviewed Problem List - Problems (1) Orthostatic dizziness Code(s): R42 - DIZZINESS AND GIDDINESS (2) HTN (hypertension) Code(s): I10 - ESSENTIAL (PRIMARY) HYPERTENSION Qualifiers: Hypertension type: essential hypertension Qualified Code(s): I10 - Essential (primary) hypertension (3) Hyperlipidemia Code(s): E78.5 - HYPERLIPIDEMIA, UNSPECIFIED (4) BPH (benign prostatic hyperplasia) Code(s): N40.0 - BENIGN PROSTATIC HYPERPLASIA WITHOUT LOWER URINRY TRACT SYMP Qualifiers: Lower urinary tract symptom presence: symptoms absent Qualified Code(s): N40.0 - Benign prostatic hyperplasia without lower urinary tract symptoms (5) Diabetes Code(s): E11.9 - TYPE 2 DIABETES MELLITUS WITHOUT COMPLICATIONS Qualifiers: Diabetes mellitus type: type 2 (6) Bradycardia Code(s): R00.1 - BRADYCARDIA, UNSPECIFIED Assessment/Plan (1) Orthostatic dizziness Assessment/Plan: denies any current symptoms orthostatic positive pre-syncope episode yesterday with bradycardia to 30s which resolved hctz held amlodipine decreased to 5mg valsartan tele cardiology following Code(s): R42 - DIZZINESS AND GIDDINESS (2) Bradycardia Assessment/Plan: currently denies any symptoms dizziness with episode of second degree HB-mobits 1 overnight pacer pads/atropine at bedside metoprolol d/c'd case discussed with cardiology monitor for 24 hours on tele Code(s): R00.1 - BRADYCARDIA, UNSPECIFIED (3) HTN (hypertension) Assessment/Plan: controlled as above Code(s): I10 - ESSENTIAL (PRIMARY) HYPERTENSION Qualifiers: Hypertension type: essential hypertension Qualified Code(s): I10 - Essential (primary) hypertension (4) Hyperlipidemia Assessment/Plan: stable continue statin Code(s): E78.5 - HYPERLIPIDEMIA, UNSPECIFIED (5) BPH (benign prostatic hyperplasia) Assessment/Plan: stable continue flomax Code(s): N40.0 - BENIGN PROSTATIC HYPERPLASIA WITHOUT LOWER URINRY TRACT SYMP Qualifiers: Lower urinary tract symptom presence: symptoms absent Qualified Code(s): N40.0 - Benign prostatic hyperplasia without lower urinary tract symptoms (6) Diabetes Assessment/Plan: controlled on glimipiride outpt insulin sliding scale here bgm will monitor Code(s): E11.9 - TYPE 2 DIABETES MELLITUS WITHOUT COMPLICATIONS Qualifiers: Diabetes mellitus type: type 2
[2017-10-14] MEDS: ALLOPURINOL 100 MG TABLET (FP) PO SCH (12:03)
[2017-10-14] MEDS: amLODIPine BESYLATE 5 MG TABLET (FP) PO SCH (12:03)
[2017-10-14] MEDS: VALSARTAN 160 MG TABLET (UD) PO SCH (12:03)
[2017-10-14] MEDS: OMEGA-3 ACID ETHYL ESTERS (FATTY-ACIDS) 1 GM CAPSULE (FP) PO SCH ×2 (12:03→21:02)
[2017-10-14] MEDS: TAMSULOSIN HCL 0.4 MG CAP.ER.24H (FP) PO SCH (12:05)
[2017-10-14] MEDS: DUTASTERIDE 0.5 MG CAP (FP) PO SCH (12:05)
[2017-10-14 12:23] LABS: ANION GAP 9 (8-16); BLOOD UREA NITROGEN 22 mg/dL (7-18); CALCIUM 9.3 mg/dL (8.5-10.1); CHLORIDE 100 mmol/L (98-107); CO2 28 mmol/L (21-32); CREATININE 1.1 mg/dL (0.7-1.3); GLUCOSE,RANDOM 108 mg/dL (74-106); MAGNESIUM 1.9 mg/dL (1.8-2.4); POTASSIUM 4.5 mmol/L (3.5-5.1); SODIUM 137 mmol/L (136-145)
--- NOTE | 2017-10-14 13:35 | EKG ---
Test Reason : Blood Pressure : / mmHG Vent. Rate : 060 BPM Atrial Rate : 060 BPM P-R Int : 346 ms QRS Dur : 132 ms QT Int : 410 ms P-R-T Axes : 044 001 111 degrees QTc Int : 410 ms SINUS RHYTHM WITH 1ST DEGREE A-V BLOCK RIGHT BUNDLE BRANCH BLOCK T WAVE ABNORMALITY, CONSIDER LATERAL ISCHEMIA ABNORMAL ECG WHEN COMPARED WITH ECG OF 13-OCT-2017 09:14, NO SIGNIFICANT CHANGE WAS FOUND Confirmed by MD Pepito, Jeremie ([id number]) on 10/14/2017 1:35:11 PM Referred By: Confirmed By:Jeremie Beyer MD
[2017-10-14 19:30] VITALS: BP 120/56; PULSE 67; TEMP 98.6
[2017-10-14] MEDS: ROSUVASTATIN CA 5 MG TABLET (FP) PO SCH (21:02)
[2017-10-14] MEDS: ASPIRIN 81 MG CHEWABLE TABLETS PO SCH (21:02)
[2017-10-14] MEDS ORDERED: CHLORHEXIDINE GLUCONATE 4% CLEANSER FOR DECOLONIZATION TP SCH (22:00)
--- NOTE | 2017-10-15 09:07 | DS ---
Physical Examination Vital Signs: Vital Signs Temperature 98.6 F 10/14/17 19:28 Pulse Rate 67 10/14/17 19:28 Respiratory Rate 20 10/14/17 19:28 Blood Pressure 120/56 10/14/17 19:28 O2 Sat by Pulse Oximetry (%) 97 10/14/17 19:28 Labs: CBC, BMP 10/13/17 06:34 10/14/17 11:35 Discharge Summary Reason For Visit: DIZZINESS/ACUTE RENAL FAILURE Hospital Course: is a pleasant 77 year old male who came in with progressive intermittent sob/dizziness. Initially, pt was cleared for discharge until pt had a pre-syncope episode with bradycardia prior to discharge. Baseline EKG is SR w/ 1st deg HB. Pt has been monitored on tele. Metoprolol stopped. Orthostatics positive. Tele revealed episodes of worsening HB with symptomatic bradycardia which is a change from baseline. Pt has been followed by cardiology and transferred to [place] for PPM. Condition: Good - Instructions Diet, Activity, Other Instructions: resume prev diet and activity maintain adequate hydration your medications have been adjusted, please take as directed f/u with Cardiology and PCP within 7 days Referrals: Adrian Ray MD [Primary Care Provider] - 1 Week Dominic Desir MD [Staff Physician] - 1 Week (Orthostatic hypotension f/u ) Disposition: TRANSFER ACUTE CARE/OTHER HOSP - Home Medications Comprehensive Discharge Medication List: Ambulatory Orders Aspirin [ASA -] 81 mg PO DAILY 04/14/17 Glimepiride [Glimepiride -] 2 mg PO DAILY 04/14/17 Metoprolol Tartrate 25 mg PO DAILY 04/14/17 Cutler-3/Dha/Epa/Fish Oil [Fish Oil 1,000 mg Softgel] 2,000 mg PO DAILY 04/14/17 Rosuvastatin Calcium [Crestor] 5 mg PO HS 04/14/17 Tamsulosin HCl 0.4 mg PO HS 04/14/17 Allopurinol [Zyloprim -] 100 mg PO DAILY 10/12/17 Dutasteride [Avodart] 0.5 mg PO HS 10/12/17 Indomethacin [Indocin -] 25 mg PO HS 10/12/17 Amlodipine Besylate [Norvasc -] 5 mg PO DAILY 30 Days #30 tablet 10/13/17 Valsartan [Diovan] 320 mg PO DAILY 30 Days #30 tablet 10/13/17
== END 2017-10-15 00:08 | disposition short-term general hospital (02) | DRG 683 ==
LOC: JER 14:29 → JERBED 16:48 → J4W 10-13 17:55
PROVIDERS: ADMIT Internal Medicine; ATTEND Internal Medicine
DX: N17.9 Acute kidney failure, unspecified (principal); I44.2 Atrioventricular block, complete; I44.1 Atrioventricular block, second degree; R42 Dizziness and giddiness; E78.00 Pure hypercholesterolemia, unspecified; N40.0 Benign prostatic hyperplasia without lower urinary tract symptoms; M10.9 Gout, unspecified; I45.10 Unspecified right bundle-branch block; R94.31 Abnormal electrocardiogram [ECG] [EKG]; R00.1 Bradycardia, unspecified; I95.2 Hypotension due to drugs; I12.9 Hypertensive chronic kidney disease with stage 1 through stage 4 chronic kidney disease, or unspecified chronic kidney disease; E11.22 Type 2 diabetes mellitus with diabetic chronic kidney disease; N18.9 Chronic kidney disease, unspecified
CPT/HCPCS: 36415; 70450-TC; 71045-TC-FY; 80048; 80053; 81003; 82533; 82550; 82553; 82962; 83735; 83880; 84100; 84443; 84484; 85025; 93005; 93010; 97116-GP; 97161-GP; 99285-25; J1644

== ENCOUNTER 2021-04-02 05:01 | Day surgery (SDC) | payer OTHER, BC ==
[2021-03-29 11:06] VITALS: BMI 23.7
[2021-04-02 13:44] LABS: BF GLUCOSE (CSF ONLY) 48 mg/dL (40-70)
[2021-04-02 14:02] VITALS: BP 159/72; PULSE 72; TEMP 97.7
[2021-04-02 14:10] LABS: CSF APPEARANCE CLEAR (CLEAR); CSF COLOR COLORLESS (COLORLESS); CSF WBC 1 mm3 (0-5)
== END 2021-04-02 14:10 | disposition home or self-care (01) ==
LOC: JRADIR 05:01
PROVIDERS: ATTEND Psychiatry & Neurology Psychiatry
PROC: 009U3ZX Drainage of Spinal Canal, Percutaneous Approach, Diagnostic (ICD-10-PCS; principal; 2021-04-02)
DX: G70.00 Myasthenia gravis without (acute) exacerbation (principal)
CPT/HCPCS: 36415; 62272; 82945; 83873; 83916; 84157; 86592; 87070; 87205; 87899